=== PATIENT | male | born 1945 | race African-American/Black ===

== ENCOUNTER 2017-11-19 13:37 | Inpatient (IN) | payer OTHER ==
[~2017-11-19] VITALS: Ht 182.9 cm; Wt 122.0 kg
[~2017-11-19 13:37] MED LIST: ASPIRIN PO; DORZOLAMIDE EACHEYE; FINACRY PO; INSULIN 70/30 SUBCUT; METOPROLOL TARTRATE PO; SEA OMEGA PO; SIMVPOW2 PO; TAMSULOSIN HCL PO
[2017-11-19 15:05] LABS: Basophils # (auto) 0 uL; Basophils % (auto) 0.5 % (0.0-2.0); Eosinophils # (auto) 0.1 uL; Eosinophils % (auto) 2.2 % (0.0-7.0); Hematocrit 29.4 % (41.0-53.0); Lymphocytes # (auto) 1.3 uL; Lymphocytes % (auto) 19.5 % (10.0-50.0); Mean Corpuscular Hemoglobin 31.2 pg (28.0-32.0); Mean Corpuscular Hgb Conc. 33.9 g/dL (32.0-36.0); Monocytes # (auto) 0.5 uL; Monocytes % (auto) 7.3 % (0.0-12.0); Neutrophils # (auto) 4.6 uL; Neutrophils % (auto) 70.5 % (37.0-80.0); Nucleated Red Blood Cells % 0.1 %; Platelet Count (auto) 203 10^3/uL (140-450); Red Blood Cells 3.19 10^6/uL (4.5-5.90); Red Cell Distribution Width 12.9 % (11.8-14.3); White Blood Cell 6.6 10^3/uL (4.4-10.8)
[2017-11-19 15:27] LABS: Alanine Aminotransferase 28 U/L (16-61); Albumin 3.4 g/dL (3.4-5.0); Alkaline Phosphatase 76 U/L (45-117); Anion Gap 7 (5-15); Aspartate Aminotransferase 18 U/L (15-37); BUN/Creatinine Ratio 13.3; Bilirubin, Total 0.3 mg/dL (0.2-1.0); Blood Urea Nitrogen 53 mg/dL (7-18); Calcium 8.6 mg/dL (8.5-10.1); Carbon Dioxide 26 mmol/L (21-32); Chloride 105 mmol/L (98-107); GFR African American 19 mL/min; GFR Non-African American 16 mL/min; Glucose 124 mg/dL (74-106); Potassium 4.9 mmol/L (3.5-5.1); Sodium 138 mmol/L (136-145); Total Protein 8.3 g/dL (6.4-8.2)
[2017-11-19] MEDS ORDERED: VANCOMYCIN PER PHARMACY 0 MG IV SCH (16:45)
[2017-11-19] MEDS ORDERED: cefTRIAXone 1GM/10ml IVPUSH 10 ML IV ONE (16:45)
[2017-11-19] MEDS ORDERED: ONDANSETRON HCL 4 MG/2 ML VIAL IV PRN (17:00)
[2017-11-19] MEDS ORDERED: NITROGLYCERIN 0.4 MG SL TAB SL PRN (17:00)
[2017-11-19] MEDS ORDERED: MORPHINE SULFATE 4 MG/ML SYR/VIAL IV PRN ×2 (17:00)
[2017-11-19] MEDS ORDERED: TEMAZEPAM 15 MG CAP PO PRN (17:00)
[2017-11-19] MEDS ORDERED: DEXTROSE (50%) 50ML SYRG IV PRN (17:00)
[2017-11-19] MEDS ORDERED: ACETAMINOPHEN 325 MG TAB PO PRN (17:00)
[2017-11-19] MEDS ORDERED: DOCUSATE SOD 100 MG CAP PO PRN (17:00)
[2017-11-19] MEDS: ACCU-CHEK COMFORT CURVE STRIP VI SCH ×2 (17:33→22:00)
[2017-11-19] MEDS: InsuLIN REG 1unit/0.01ml Soln (100units/ml) SC SCH ×2 (17:33→22:00)
[2017-11-19] MEDS ORDERED: cloNIDine HCL 0.1 MG TAB PO PRN (17:45)
[2017-11-19] MEDS ORDERED: VANCOMYCIN 1,500 MG in SODIUM CHL 0.9% 250 ML IV ONE (18:00)
[2017-11-19] MEDS ORDERED: VANCOMYCIN 1,500 MG in D5W 5% 250 ML IV ONE (18:00)
[2017-11-19] MEDS: INSULIN 70/30 1unit/0.01ml Susp (100units/ml) SC SCH (18:13)
[2017-11-19] MEDS: TAMSULOSIN HYDROCHLORIDE 0.4 MG CAP PO SCH (18:14)
[2017-11-19 22:00] VITALS: BP 119/72
[2017-11-19] MEDS: DORZOLAMIDE HCL 2% OPTH(EYE) SOL 10ML EACHEYE SCH (22:00)
[2017-11-19 22:11] LABS: Lactic Acid w/Reflex 2.5 mmol/L (0.4-2.0)
[2017-11-19] MEDS: FAMOTIDINE 20 MG TAB PO SCH (23:02)
[2017-11-19] MEDS: ATORVASTATIN 20 MG TAB PO SCH (23:03)
[2017-11-19] MEDS: ASCORBIC ACID 500 MG TAB PO SCH (23:03)
[2017-11-19] MEDS: SODIUM CHLOR 0.9% PF (SALINE LOCK) 10ML VIAL/SYR IV SCH (23:05)
[2017-11-20 05:30] VITALS: BP 158/86
[2017-11-20] MEDS: InsuLIN REG 1unit/0.01ml Soln (100units/ml) SC SCH ×4 (06:16→22:00)
[2017-11-20] MEDS: HYDROcodone-ACET 5/325MG TAB PO PRN ×3 (06:16→22:31)
[2017-11-20] MEDS: ACCU-CHEK COMFORT CURVE STRIP VI SCH ×4 (06:17→22:28)
[2017-11-20] MEDS: SODIUM CHLOR 0.9% PF (SALINE LOCK) 10ML VIAL/SYR IV SCH ×3 (06:17→22:00)
[2017-11-20 07:24] LABS: Basophils # (auto) 0 uL; Basophils % (auto) 0.3 % (0.0-2.0); Eosinophils # (auto) 0.2 uL; Eosinophils % (auto) 2.1 % (0.0-7.0); Hematocrit 29.7 % (41.0-53.0); Hemoglobin 9.9 g/dL (13.5-17.5); Lymphocytes # (auto) 2.1 uL; Lymphocytes % (auto) 26.7 % (10.0-50.0); Mean Corpuscular Hemoglobin 30.9 pg (28.0-32.0); Mean Corpuscular Hgb Conc. 33.5 g/dL (32.0-36.0); Mean Corpuscular Volume 92.3 fL (80.0-100.0); Monocytes # (auto) 0.6 uL; Monocytes % (auto) 7.7 % (0.0-12.0); Neutrophils % (auto) 63.2 % (37.0-80.0); Nucleated Red Blood Cells % 0.2 %; Platelet Count (auto) 156 10^3/uL (140-450); Red Blood Cells 3.22 10^6/uL (4.5-5.90); Red Cell Distribution Width 12.6 % (11.8-14.3); White Blood Cell 7.9 10^3/uL (4.4-10.8)
[2017-11-20 07:42] LABS: Albumin 3.2 g/dL (3.4-5.0); BUN/Creatinine Ratio 14.8; Calcium 8.7 mg/dL (8.5-10.1); Potassium 4.9 mmol/L (3.5-5.1)
[2017-11-20 07:44] LABS: Bilirubin, Total 0.4 mg/dL (0.2-1.0); Total Protein 7.9 g/dL (6.4-8.2)
[2017-11-20] MEDS: INSULIN 70/30 1unit/0.01ml Susp (100units/ml) SC SCH ×2 (08:20→17:30)
[2017-11-20 08:59] VITALS: BP 161/81
[2017-11-20] MEDS ORDERED: cefTRIAXone 1GM/10ml IVPUSH 10 ML IV SCH (09:00)
[2017-11-20] MEDS: ZINC SULFATE 220 MG CAP PO SCH (09:47)
[2017-11-20] MEDS: DORZOLAMIDE HCL 2% OPTH(EYE) SOL 10ML EACHEYE SCH ×2 (09:47→22:00)
[2017-11-20] MEDS: MULTIPLE VITAMIN TAB PO SCH (09:49)
[2017-11-20] MEDS: FINASTERIDE 5 MG TAB PO SCH (09:49)
[2017-11-20] MEDS: ASCORBIC ACID 500 MG TAB PO SCH ×2 (09:50→22:00)
[2017-11-20] MEDS ORDERED: METOPROLOL SUCCINATE XL 50 MG TAB PO SCH (10:00)
[2017-11-20] MEDS ORDERED: ASPirin-EC 81 mg tab PO SCH (10:00)
[2017-11-20] MEDS ORDERED: VANCOMYCIN 1GM/250ML 250 ML IV ONE (10:30)
[2017-11-20 11:17] LABS: Urine Bacteria NONE SEEN /hpf (None Seen); Urine Blood Negative /uL (Negative); Urine Specific Gravity 1.016 (1.001-1.035); Urine WBC 1 /hpf (0 - 3)
[2017-11-20] MEDS ORDERED: INSULIN 70/30 1unit/0.01ml Susp (100units/ml) SC SCH (12:00)
[2017-11-20 12:48] VITALS: BP 105/67
[2017-11-20] MEDS ORDERED: CLINDAMYCIN 900MG IV 50 ML IV ONE (13:00)
[2017-11-20 17:00] VITALS: BP 125/68
[2017-11-20] MEDS: TAMSULOSIN HYDROCHLORIDE 0.4 MG CAP PO SCH (17:49)
[2017-11-20 22:00] VITALS: BP 149/68
[2017-11-20] MEDS: ATORVASTATIN 20 MG TAB PO SCH (22:30)
[2017-11-20] MEDS: CLINDAMYCIN 900MG IV 50 ML IV SCH (22:30)
[2017-11-20] MEDS: FAMOTIDINE 20 MG TAB PO SCH (22:31)
[2017-11-21 05:00] VITALS: BP 152/83
[2017-11-21] MEDS: ACCU-CHEK COMFORT CURVE STRIP VI SCH ×2 (06:25→11:30)
[2017-11-21] MEDS: InsuLIN REG 1unit/0.01ml Soln (100units/ml) SC SCH ×2 (06:25→11:30)
[2017-11-21] MEDS: CLINDAMYCIN 900MG IV 50 ML IV SCH (06:25)
[2017-11-21] MEDS: INSULIN 70/30 1unit/0.01ml Susp (100units/ml) SC SCH (08:12)
[2017-11-21 08:30] VITALS: BP 143/69
[2017-11-21] MEDS: FINASTERIDE 5 MG TAB PO SCH (09:50)
[2017-11-21] MEDS: ZINC SULFATE 220 MG CAP PO SCH (09:50)
[2017-11-21] MEDS: MULTIPLE VITAMIN TAB PO SCH (09:50)
[2017-11-21] MEDS: ASCORBIC ACID 500 MG TAB PO SCH (09:50)
[2017-11-21] MEDS: DORZOLAMIDE HCL 2% OPTH(EYE) SOL 10ML EACHEYE SCH (09:51)
[2017-11-21 10:51] VITALS: BP 143/69
== END 2017-11-21 12:30 | disposition home or self-care (01) | DRG 539 ==
LOC: EDBD 13:37 → ER 13:51 → TELE 13:52 → TELE-WESTW 21:55
PROVIDERS: ADMIT Internal Medicine; ATTEND Internal Medicine
DX: M86.9 Osteomyelitis, unspecified (principal); G93.41 Metabolic encephalopathy; N18.4 Chronic kidney disease, stage 4 (severe); E11.21 Type 2 diabetes mellitus with diabetic nephropathy; R55 Syncope and collapse; E11.69 Type 2 diabetes mellitus with other specified complication; E86.1 Hypovolemia; E11.22 Type 2 diabetes mellitus with diabetic chronic kidney disease; E66.9 Obesity, unspecified; M27.2 Inflammatory conditions of jaws; I13.10 Hypertensive heart and chronic kidney disease without heart failure, with stage 1 through stage 4 chronic kidney disease, or unspecified chronic kidney disease; J32.0 Chronic maxillary sinusitis; I70.90 Unspecified atherosclerosis; K05.219 Aggressive periodontitis, localized, unspecified severity; D63.8 Anemia in other chronic diseases classified elsewhere; E78.5 Hyperlipidemia, unspecified; I10 Essential (primary) hypertension; Z79.4 Long term (current) use of insulin; Z83.3 Family history of diabetes mellitus; Z90.49 Acquired absence of other specified parts of digestive tract
CPT/HCPCS: 36415; 70450; 70486; 71045; 80053; 80202; 81001; 82962; 83036; 83605; 83880; 84443; 84484; 85025; 87040; 93005; 93306; 96365; 96372; 96375; 99291; J1815; J3490; J7060

== ENCOUNTER → 2019-11-19 | Emergency (ER) | payer OTHER ==
[~2019-11-19] VITALS: Ht 182.9 cm; Wt 114.8 kg
[2019-11-19 12:00] VITALS: BP 147/72
== END | disposition home or self-care (01) ==
LOC: ER 11:47
DX: J30.9 Allergic rhinitis, unspecified (principal); E11.9 Type 2 diabetes mellitus without complications; E78.5 Hyperlipidemia, unspecified; I10 Essential (primary) hypertension
CPT/HCPCS: 71046

== ENCOUNTER 2020-03-03 21:43 | Emergency (ER) | payer OTHER ==
[~2020-03-03] VITALS: Ht 182.9 cm; Wt 111.1 kg
[2020-03-03] MEDS ORDERED: SODIUM CHLORIDE 0.9% 500 ML IV ONE (22:19)
[2020-03-03 23:19] LABS: Basophils # (auto) 0.1 10 ^3/uL (0-0.2); Eosinophils # (auto) 0.2 10 ^3/uL (0-0.8); White Blood Cell 7.8 10^3/uL (4.4-10.8)
[2020-03-03 23:21] LABS: Basophils % (auto) 1.1 % (0.0-2.0); Hematocrit 23.4 % (41.0-53.0); Hemoglobin 7.2 g/dL (13.5-17.5); Lymphocytes # (auto) 1.2 10 ^3/uL (0.4-5.4); Lymphocytes % (auto) 15.5 % (10.0-50.0); Mean Corpuscular Hemoglobin 28.6 pg (28.0-32.0); Mean Corpuscular Volume 92.4 fL (80.0-100.0); Monocytes # (auto) 0.4 10 ^3/uL (0-1.3); Monocytes % (auto) 5.3 % (0.0-12.0); Neutrophils # (auto) 5.8 10 ^3/uL (1.6-8.6); Neutrophils % (auto) 75.1 % (37.0-80.0); Nucleated Red Blood Cells % 0.2 %; Platelet Count (auto) 221 10^3/uL (140-450); Red Blood Cells 2.53 10^6/uL (4.5-5.90); Red Cell Distribution Width 14.4 % (11.8-14.3)
[2020-03-03 23:52] LABS: Albumin 2.8 g/dL (3.4-5.0); BUN/Creatinine Ratio 16.7; Calcium 8.9 mg/dL (8.5-10.1); Potassium 5.4 mmol/L (3.5-5.1)
[2020-03-03 23:54] LABS: Bilirubin, Total 0.3 mg/dL (0.2-1.0)
[2020-03-03 23:58] LABS: Urine Bacteria NONE SEEN /hpf (None Seen); Urine Blood Negative /uL (Negative); Urine Specific Gravity 1.013 (1.001-1.035); Urine WBC 1 /hpf (0 - 3)
[2020-03-04] MEDS ORDERED: SODIUM ZIRCONIUM CYCL 10 GM PAK PO ONE (00:30)
[2020-03-04] MEDS ORDERED: SODIUM CHLORIDE 0.9% 250 ML IV ONE (01:00)
[2020-03-04 02:00] VITALS: BP 137/59
== END 2020-03-04 07:27 | disposition home or self-care (01) ==
LOC: EDBD 21:43 → ER 21:43
DX: E86.0 Dehydration (principal); R53.1 Weakness; I95.9 Hypotension, unspecified; N17.8 Other acute kidney failure; E87.5 Hyperkalemia
CPT/HCPCS: 36415; 80053; 81001; 85025; 93005; 96360; 99285; J7030; 96361

== ENCOUNTER 2020-04-05 23:25 | Emergency (ER) | payer OTHER ==
[~2020-04-05] VITALS: Ht 182.9 cm; Wt 108.9 kg
[2020-04-06] MEDS ORDERED: FLEET ENEMA(ADULT) 135 ML PR ONE (02:00)
[2020-04-06 05:15] VITALS: BP 141/61
== END 2020-04-06 06:47 | disposition home or self-care (01) ==
LOC: EDBD 23:25 → ER 23:32
DX: K59.00 Constipation, unspecified (principal); E11.9 Type 2 diabetes mellitus without complications; E78.5 Hyperlipidemia, unspecified; I10 Essential (primary) hypertension; Z90.49 Acquired absence of other specified parts of digestive tract; Z86.79 Personal history of other diseases of the circulatory system; Z86.74 Personal history of sudden cardiac arrest
CPT/HCPCS: 74176

== ENCOUNTER 2021-10-17 19:30 | Emergency (ER) | payer OTHER ==
[~2021-10-17] VITALS: Ht 185.4 cm; Wt 93.4 kg
[2021-10-17] MEDS ORDERED: FLEET ENEMA(ADULT) 135 ML PR ONE (20:15)
[2021-10-17] MEDS ORDERED: MAGNESIUM CITRATE SOLUTION 300 ML BTL PO ONE (21:00)
[2021-10-18] MEDS ORDERED: POLY33504 PO (02:49)
[2021-10-18 10:30] VITALS: BP 141/66
== END 2021-10-18 12:12 | disposition home or self-care (01) ==
LOC: EDBD 19:30 → EDUNIT# 19:30 → ER 19:30
DX: K59.00 Constipation, unspecified (principal); I10 Essential (primary) hypertension; E11.9 Type 2 diabetes mellitus without complications; E78.5 Hyperlipidemia, unspecified; Z86.2 Personal history of diseases of the blood and blood-forming organs and certain disorders involving the immune mechanism; Z90.49 Acquired absence of other specified parts of digestive tract; Z79.4 Long term (current) use of insulin; Z79.82 Long term (current) use of aspirin; Z79.899 Other long term (current) drug therapy
CPT/HCPCS: 74176

== ENCOUNTER 2021-12-21 08:45 | Emergency (ER) | payer OTHER ==
[~2021-12-21] VITALS: Ht 182.9 cm; Wt 95.3 kg
[~2021-12-21 08:45] MED LIST changes: +DOCU-94 PO; +DOXY-286 PO; +FER325T PO; -INSULIN 70/30 SUBCUT; +POLY33504 PO; -SIMVPOW2 PO
[2021-12-21] MEDS ORDERED: SODIUM CHLORIDE 0.9% 500 ML IVB ONE (10:15)
[2021-12-21] MEDS ORDERED: SODIUM CHLORIDE 0.9% 1,000 ML IV ONE (10:15)
[2021-12-21 10:36] LABS: Basophils # (auto) 0 10 ^3/uL (0-0.2); Basophils % (auto) 0.8 % (0.0-2.0); Eosinophils # (auto) 0.1 10 ^3/uL (0-0.8); Hematocrit 23.4 % (41.0-53.0); Hemoglobin 7.9 g/dL (13.5-17.5); Lymphocytes # (auto) 1.2 10 ^3/uL (0.4-5.4); Lymphocytes % (auto) 26.6 % (10.0-50.0); Mean Corpuscular Hemoglobin 30.1 pg (28.0-32.0); Mean Corpuscular Volume 88.5 fL (80.0-100.0); Monocytes # (auto) 0.3 10 ^3/uL (0-1.3); Neutrophils # (auto) 2.9 10 ^3/uL (1.6-8.6); Neutrophils % (auto) 62.6 % (37.0-80.0); Red Blood Cells 2.64 10^6/uL (4.5-5.90); Red Cell Distribution Width 15.5 % (11.8-14.3); White Blood Cell 4.6 10^3/uL (4.4-10.8)
[2021-12-21 11:59] LABS: Potassium 5.2 mmol/L (3.5-5.1)
[2021-12-21 12:09] LABS: Albumin 2.8 g/dL (3.4-5.0); BUN/Creatinine Ratio 12.1; Bilirubin, Total 0.4 mg/dL (0.2-1.0); Calcium 9.5 mg/dL (8.5-10.1); Magnesium 3.4 mg/dL (1.6-2.6); Total Protein 7.9 g/dL (6.4-8.2)
[2021-12-21] MEDS ORDERED: FLEET MINERAL OIL ENEMA 133 ML PR ONE (12:30)
[2021-12-21] MEDS ORDERED: FURO1TAB33 PO (15:52)
[2021-12-21] MEDS ORDERED: MAGNSUS48 PO (15:52)
[2021-12-21 16:01] LABS: Urine Bacteria NONE SEEN /hpf (None Seen); Urine Blood Negative /uL (Negative); Urine Specific Gravity 1.014 (1.001-1.035); Urine WBC 2 /hpf (0 - 3)
[2021-12-21 19:00] VITALS: BP 114/55
== END 2021-12-21 19:25 | disposition home or self-care (01) ==
LOC: EDBD 08:45 → ER 08:51
DX: K59.00 Constipation, unspecified (principal); E87.5 Hyperkalemia; D63.1 Anemia in chronic kidney disease; E11.22 Type 2 diabetes mellitus with diabetic chronic kidney disease; I12.9 Hypertensive chronic kidney disease with stage 1 through stage 4 chronic kidney disease, or unspecified chronic kidney disease; N18.4 Chronic kidney disease, stage 4 (severe); E44.0 Moderate protein-calorie malnutrition; Z68.28 Body mass index [BMI] 28.0-28.9, adult
CPT/HCPCS: 36415; 71045; 74176; 80053; 81001; 83690; 83735; 85025; 93005; 96360; 99285; J7030

== ENCOUNTER 2022-01-14 13:41 | Inpatient (IN) | payer OTHER ==
[~2022-01-14] VITALS: Ht 188 cm; Wt 85.0 kg
[~2022-01-14 13:41] MED LIST changes: -FER325T PO; +FURO1TAB33 PO; +MAGNSUS48 PO
[2022-01-14] MEDS ORDERED: FLEET ENEMA(ADULT) 135 ML PR ONE (14:00)
[2022-01-14] MEDS ORDERED: DOCUSATE SOD 100 MG CAP PO ONE (14:00)
[2022-01-14 15:36] LABS: Basophils # (auto) 0 10 ^3/uL (0-0.2); Basophils % (auto) 0.8 % (0.0-2.0); Eosinophils # (auto) 0.1 10 ^3/uL (0-0.8); Eosinophils % (auto) 2.8 % (0.0-7.0); Hematocrit 23.7 % (41.0-53.0); Hemoglobin 7.8 g/dL (13.5-17.5); Lymphocytes # (auto) 1.1 10 ^3/uL (0.4-5.4); Lymphocytes % (auto) 28.5 % (10.0-50.0); Mean Corpuscular Hemoglobin 29.9 pg (28.0-32.0); Mean Corpuscular Hgb Conc. 32.9 g/dL (32.0-36.0); Monocytes # (auto) 0.2 10 ^3/uL (0-1.3); Monocytes % (auto) 6.1 % (0.0-12.0); Neutrophils # (auto) 2.4 10 ^3/uL (1.6-8.6); Neutrophils % (auto) 61.8 % (37.0-80.0); Nucleated Red Blood Cells % 0.1 %; Red Cell Distribution Width 15.8 % (11.8-14.3); White Blood Cell 3.9 10^3/uL (4.4-10.8)
[2022-01-14 15:51] LABS: Albumin 2.7 g/dL (3.4-5.0); Calcium 9.2 mg/dL (8.5-10.1)
[2022-01-14 16:07] LABS: BUN/Creatinine Ratio 15.7
[2022-01-14 16:08] LABS: Bilirubin, Total 0.3 mg/dL (0.2-1.0); Total Protein 7.1 g/dL (6.4-8.2)
[2022-01-14 16:10] LABS: Potassium 5.6 mmol/L (3.5-5.1)
[2022-01-14] MEDS ORDERED: SODIUM BICARBONATE 8.4% INJ 50ML SYRINGE IV ONE (16:30)
[2022-01-14] MEDS ORDERED: ALBUTEROL SULF 2.5 MG/0.5ML(0.5%) NEB SOLN NEB ONE (16:30)
[2022-01-14] MEDS ORDERED: CALCIUM GLUC 1,000mg/50ml-NS 50 ML IV ONE (16:30)
[2022-01-14] MEDS ORDERED: DEXTROSE (50%) 50ML SYRG IV ONE (16:30)
[2022-01-14] MEDS ORDERED: SODIUM CHLORIDE 0.9% 1,000 ML IV ONE ×2 (16:30)
[2022-01-14] MEDS ORDERED: FUROSEMIDE 20 MG/2 ML VIAL IV ONE (16:30)
[2022-01-14] MEDS ORDERED: SODIUM ZIRCONIUM CYCL 10 GM PAK PO ONE (16:30)
[2022-01-14] MEDS ORDERED: InsuLIN REG 1unit/0.01ml Soln (100units/ml) IV ONE (16:30)
[2022-01-14] MEDS ORDERED: DOCUSATE SOD 100 MG CAP PO PRN (21:45)
[2022-01-14] MEDS ORDERED: ONDANSETRON HCL 4 MG/2 ML VIAL IV PRN (21:45)
[2022-01-14] MEDS ORDERED: DEXTROSE (50%) 50ML SYRG IV PRN (21:45)
[2022-01-14] MEDS ORDERED: HYDROcodone-ACET 5/325MG TAB PO PRN (21:45)
[2022-01-14] MEDS ORDERED: ACETAMINOPHEN 325 MG TAB PO PRN (21:45)
[2022-01-14] MEDS: ACCU-CHEK COMFORT CURVE STRIP VI SCH (22:00)
[2022-01-14] MEDS: InsuLIN REG 1unit/0.01ml Soln (100units/ml) SC SCH (22:00)
[2022-01-14] MEDS: SODIUM CHLOR 0.9% PF (SALINE LOCK) 10ML VIAL/SYR IV SCH (22:50)
[2022-01-14] MEDS: DOCUSATE SOD 100 MG CAP PO SCH (23:06)
[2022-01-14] MEDS: HEPARIN SODIUM (PORCINE) 5000 UNITS/ML 1ML VIAL SC SCH (23:13)
[2022-01-14] MEDS ORDERED: NITROGLYCERIN 0.4 MG SL TAB SL PRN (23:45)
[2022-01-14] MEDS ORDERED: MORPHINE SULFATE INJ 2 MG/ml SYRG IV PRN (23:45)
[2022-01-15 04:37] LABS: Urine Bacteria NONE SEEN /hpf (None Seen); Urine Blood Negative /uL (Negative); Urine Hyaline Cast FEW /lpf (0 - 2); Urine Mucus FEW (None Seen); Urine Specific Gravity 1.009 (1.001-1.035); Urine WBC <1 /hpf (0 - 3)
[2022-01-15 05:44] LABS: Albumin 2.7 g/dL (3.4-5.0); Potassium 4.6 mmol/L (3.5-5.1)
[2022-01-15 05:48] LABS: BUN/Creatinine Ratio 15.7; Bilirubin, Total 0.3 mg/dL (0.2-1.0); Total Protein 7.1 g/dL (6.4-8.2)
[2022-01-15 05:53] LABS: Basophils # (auto) 0 10 ^3/uL (0-0.2); Eosinophils # (auto) 0.1 10 ^3/uL (0-0.8); Hemoglobin 7.6 g/dL (13.5-17.5); Lymphocytes # (auto) 1.5 10 ^3/uL (0.4-5.4); Monocytes # (auto) 0.3 10 ^3/uL (0-1.3); Neutrophils # (auto) 3.1 10 ^3/uL (1.6-8.6); Red Cell Distribution Width 15.6 % (11.8-14.3)
[2022-01-15] MEDS: SODIUM CHLOR 0.9% PF (SALINE LOCK) 10ML VIAL/SYR IV SCH ×3 (06:07→22:00)
[2022-01-15] MEDS: ACCU-CHEK COMFORT CURVE STRIP VI SCH ×4 (06:47→22:00)
[2022-01-15] MEDS: InsuLIN REG 1unit/0.01ml Soln (100units/ml) SC SCH ×4 (06:48→22:00)
[2022-01-15 06:49] LABS: Basophils % (auto) 0.7 % (0.0-2.0); Eosinophils % (auto) 2.8 % (0.0-7.0); Hematocrit 22.7 % (41.0-53.0); Lymphocytes % (auto) 29.7 % (10.0-50.0); Mean Corpuscular Hemoglobin 30.1 pg (28.0-32.0); Mean Corpuscular Hgb Conc. 33.4 g/dL (32.0-36.0); Mean Corpuscular Volume 90.1 fL (80.0-100.0); Monocytes % (auto) 6.5 % (0.0-12.0); Neutrophils % (auto) 60.3 % (37.0-80.0); Red Blood Cells 2.52 10^6/uL (4.5-5.90); White Blood Cell 5.2 10^3/uL (4.4-10.8)
[2022-01-15] MEDS: DOCUSATE SOD 100 MG CAP PO SCH ×2 (10:19→22:32)
[2022-01-15] MEDS: FAMOTIDINE (10MG/ML) 2ML VL IV SCH (10:19)
[2022-01-15] MEDS: HEPARIN SODIUM (PORCINE) 5000 UNITS/ML 1ML VIAL SC SCH (10:22)
[2022-01-15] MEDS: FUROSEMIDE 20 MG/2 ML VIAL IV SCH (10:32)
[2022-01-15] MEDS ORDERED: LACTULOSE 20Gm/30ML SOLN PO ONE (11:15)
[2022-01-15 12:45] LABS: Alcohol, Urine < 3.0 mg/dL (0-10); Amphetamine Screen, Urine NEGATIVE (NEGATIVE); Barbiturate Scree,Urine NEGATIVE (NEGATIVE); Benzodiazephine Screen, Urine NEGATIVE (NEGATIVE); Cannabinoid Screen, Urine NEGATIVE (NEGATIVE); Cocaine Screen, Urine NEGATIVE (NEGATIVE); Opiate Scree,Urine NEGATIVE (NEGATIVE); Phencyclidine Screen, Urine NEGATIVE (NEGATIVE)
[2022-01-15] MEDS ORDERED: TRAZ1TAB12 PO (16:43)
[2022-01-15] MEDS ORDERED: LORA-622 PO (16:43)
[2022-01-15] MEDS ORDERED: CARV25TA55 PO (16:43)
[2022-01-15] MEDS ORDERED: ATOR20TA PO (16:43)
[2022-01-15] MEDS ORDERED: FER325T PO (16:43)
[2022-01-15] MEDS ORDERED: NIFE1TAB30 PO (16:43)
[2022-01-15 20:00] VITALS: BP 141/76
[2022-01-15 21:35] VITALS: BP 141/70
[2022-01-16 04:55] VITALS: BP 117/55
[2022-01-16] MEDS: InsuLIN REG 1unit/0.01ml Soln (100units/ml) SC SCH ×2 (06:18→11:30)
[2022-01-16] MEDS: ACCU-CHEK COMFORT CURVE STRIP VI SCH ×2 (06:18→14:24)
[2022-01-16] MEDS: SODIUM CHLOR 0.9% PF (SALINE LOCK) 10ML VIAL/SYR IV SCH ×2 (06:18→14:24)
[2022-01-16 06:31] LABS: Calcium 8.7 mg/dL (8.5-10.1); Potassium 4.7 mmol/L (3.5-5.1)
[2022-01-16 06:34] LABS: BUN/Creatinine Ratio 15.4
[2022-01-16 08:00] VITALS: BP 141/76
[2022-01-16 09:00] VITALS: BP 139/63
[2022-01-16] MEDS: DOCUSATE SOD 100 MG CAP PO SCH (10:00)
[2022-01-16] MEDS: FAMOTIDINE (10MG/ML) 2ML VL IV SCH (10:00)
[2022-01-16] MEDS: FUROSEMIDE 20 MG/2 ML VIAL IV SCH (10:00)
[2022-01-16] MEDS ORDERED: DOCU-94 PO (10:17)
[2022-01-16 12:39] VITALS: BP 161/72
== END 2022-01-16 16:00 | disposition home or self-care (01) | DRG 392 ==
LOC: ER 13:41 → EDUNIT# 13:41 → EDBD 13:41 → TELE 23:45 → TELE-EAST 01-15 15:41
PROVIDERS: ADMIT Nurse Practitioner Family; ATTEND Family Medicine
DX: K59.00 Constipation, unspecified (principal); E44.0 Moderate protein-calorie malnutrition; N17.9 Acute kidney failure, unspecified; N18.4 Chronic kidney disease, stage 4 (severe); I69.351 Hemiplegia and hemiparesis following cerebral infarction affecting right dominant side; E87.5 Hyperkalemia; K31.9 Disease of stomach and duodenum, unspecified; E11.65 Type 2 diabetes mellitus with hyperglycemia; E88.09 Other disorders of plasma-protein metabolism, not elsewhere classified; N40.0 Benign prostatic hyperplasia without lower urinary tract symptoms; E11.22 Type 2 diabetes mellitus with diabetic chronic kidney disease; I12.9 Hypertensive chronic kidney disease with stage 1 through stage 4 chronic kidney disease, or unspecified chronic kidney disease; Z20.822 Contact with and (suspected) exposure to COVID-19; E78.5 Hyperlipidemia, unspecified; D63.1 Anemia in chronic kidney disease; E78.00 Pure hypercholesterolemia, unspecified; E11.40 Type 2 diabetes mellitus with diabetic neuropathy, unspecified; L97.529 Non-pressure chronic ulcer of other part of left foot with unspecified severity; L97.519 Non-pressure chronic ulcer of other part of right foot with unspecified severity; Z79.4 Long term (current) use of insulin; Z74.01 Bed confinement status; Z83.3 Family history of diabetes mellitus; Z68.24 Body mass index [BMI] 24.0-24.9, adult; Z90.49 Acquired absence of other specified parts of digestive tract; Z87.891 Personal history of nicotine dependence
CPT/HCPCS: 36415; 74176; 80048; 80053; 80307; 81001; 82962; 83036; 84100; 84132; 84484; 85025; 86850; 86900; 86901; 87081; 94644; 96374; 96375; 99291; G0378; J1815; J3490

== ENCOUNTER 2022-03-12 06:11 | Inpatient (IN) | payer OTHER ==
[~2022-03-12] VITALS: Ht 188 cm; Wt 90.6 kg
[~2022-03-12 06:11] MED LIST changes: +ATOR20TA PO; +CARV25TA55 PO; +FER325T PO; +LORA-622 PO; +NIFE1TAB30 PO; +TRAZ1TAB12 PO
[2022-03-12 10:04] LABS: Basophils # (auto) 0 10 ^3/uL (0-0.2); Basophils % (auto) 0.1 % (0.0-2.0); Eosinophils # (auto) 0 10 ^3/uL (0-0.8); Hematocrit 26.8 % (41.0-53.0); Hemoglobin 8.6 g/dL (13.5-17.5); Lymphocytes # (auto) 1.2 10 ^3/uL (0.4-5.4); Lymphocytes % (auto) 5.9 % (10.0-50.0); Mean Corpuscular Volume 93.6 fL (80.0-100.0); Monocytes # (auto) 1.1 10 ^3/uL (0-1.3); Monocytes % (auto) 5.6 % (0.0-12.0); Neutrophils % (auto) 88.4 % (37.0-80.0); Nucleated Red Blood Cells % 0.1 %; Red Blood Cells 2.87 10^6/uL (4.5-5.90); Red Cell Distribution Width 15.6 % (11.8-14.3); White Blood Cell 20.3 10^3/uL (4.4-10.8)
[2022-03-12] MEDS ORDERED: SODIUM CHLORIDE 0.9% 1,000 ML IV ONE (10:15)
[2022-03-12] MEDS ORDERED: SODIUM CHLORIDE 0.9% 500 ML IVB ONE (10:15)
[2022-03-12] MEDS ORDERED: ACETAMINOPHEN 650 mg PER 20.3 mL UD PO ONE (11:00)
[2022-03-12 11:04] LABS: Urine Bacteria MANY /hpf (None Seen); Urine Blood TRACE /uL (Negative); Urine Specific Gravity 1.014 (1.001-1.035); Urine WBC 88 /hpf (0 - 3)
[2022-03-12 12:02] LABS: Calcium 9.6 mg/dL (8.5-10.1); Chloride 104 mmol/L (98-107); Potassium 4.6 mmol/L (3.5-5.1); Sodium 139 mmol/L (136-145)
[2022-03-12 12:06] LABS: Alanine Aminotransferase 12 U/L (16-61); Anion Gap 16 (5-15); Aspartate Aminotransferase 11 U/L (15-37); BUN/Creatinine Ratio 21.4; Blood Alcohol < 3.0 mg/dL (0-5); Blood Urea Nitrogen 67 mg/dL (7-18); Carbon Dioxide 19 mmol/L (21-32); GFR African American 25 mL/min; GFR Non-African American 21 mL/min; Glucose 170 mg/dL (74-106)
[2022-03-12 12:09] LABS: Bilirubin, Total 0.8 mg/dL (0.2-1.0); Total Protein 7.2 g/dL (6.4-8.2)
[2022-03-12] MEDS ORDERED: cefTRIAXone 1GM/50ML D5W 50 ML IV ONE (13:00)
[2022-03-12] MEDS ORDERED: ONDANSETRON HCL 4 MG/2 ML VIAL IV PRN (14:00)
[2022-03-12] MEDS ORDERED: DOCUSATE SOD 100 MG CAP PO PRN (14:00)
[2022-03-12] MEDS: SODIUM CHLORIDE 0.9% 1,000 ML IV SCH (14:13)
[2022-03-12 16:36] LABS: Alkaline Phosphatase 67 U/L (45-117)
[2022-03-12] MEDS: ACETAMINOPHEN 325 MG TAB PO PRN (22:02)
[2022-03-12 23:00] VITALS: BP 117/50
[2022-03-13 05:04] VITALS: BP 118/54
[2022-03-13 05:34] LABS: Basophils # (auto) 0 10 ^3/uL (0-0.2); Basophils % (auto) 0.1 % (0.0-2.0); Eosinophils # (auto) 0 10 ^3/uL (0-0.8); Eosinophils % (auto) 0.1 % (0.0-7.0); Hematocrit 26.6 % (41.0-53.0); Hemoglobin 8.4 g/dL (13.5-17.5); Lymphocytes # (auto) 1.3 10 ^3/uL (0.4-5.4); Lymphocytes % (auto) 6.4 % (10.0-50.0); Mean Corpuscular Hemoglobin 29.2 pg (28.0-32.0); Mean Corpuscular Hgb Conc. 31.6 g/dL (32.0-36.0); Mean Corpuscular Volume 92.3 fL (80.0-100.0); Monocytes # (auto) 1.2 10 ^3/uL (0-1.3); Monocytes % (auto) 5.8 % (0.0-12.0); Neutrophils # (auto) 17.5 10 ^3/uL (1.6-8.6); Neutrophils % (auto) 87.6 % (37.0-80.0); Red Blood Cells 2.89 10^6/uL (4.5-5.90); Red Cell Distribution Width 15.8 % (11.8-14.3)
[2022-03-13] MEDS: SODIUM CHLORIDE 0.9% 1,000 ML IV SCH ×2 (06:46→12:03)
[2022-03-13 08:30] VITALS: BP 135/78
[2022-03-13] MEDS: ENOXAPARIN SOD 30 MG/0.3 ML SYRINGE SC SCH (12:02)
[2022-03-13] MEDS: cefTRIAXone 1GM/50ML D5W 50 ML IV SCH (12:02)
[2022-03-13 12:30] VITALS: BP 134/51
[2022-03-13] MEDS ORDERED: VANCOMYCIN PER PHARMACY 0 MG IV SCH (15:45)
[2022-03-13] MEDS ORDERED: VANCOMYCIN 1GM/250ML 250 ML IV ONE (16:00)
[2022-03-13 17:00] VITALS: BP 138/50
[2022-03-13] MEDS: LACTATED RINGER'S 1,000 ML IV SCH (19:17)
[2022-03-13 22:00] VITALS: BP 140/46
[2022-03-14 05:00] VITALS: BP 132/51
[2022-03-14 06:51] LABS: Eosinophils # (auto) 0.1 10 ^3/uL (0-0.8); Hemoglobin 7.9 g/dL (13.5-17.5); Lymphocytes # (auto) 1.4 10 ^3/uL (0.4-5.4); Mean Corpuscular Volume 90.5 fL (80.0-100.0); Monocytes # (auto) 1.1 10 ^3/uL (0-1.3)
[2022-03-14 06:54] LABS: Basophils # (auto) 0.1 10 ^3/uL (0-0.2); Basophils % (auto) 0.5 % (0.0-2.0); Eosinophils % (auto) 0.4 % (0.0-7.0); Hematocrit 23.9 % (41.0-53.0); Lymphocytes % (auto) 9.2 % (10.0-50.0); Mean Corpuscular Hgb Conc. 33.1 g/dL (32.0-36.0); Neutrophils # (auto) 12.6 10 ^3/uL (1.6-8.6); Neutrophils % (auto) 82.9 % (37.0-80.0); Red Blood Cells 2.64 10^6/uL (4.5-5.90); Red Cell Distribution Width 14.9 % (11.8-14.3); White Blood Cell 15.1 10^3/uL (4.4-10.8)
[2022-03-14 07:00] LABS: Calcium 9.1 mg/dL (8.5-10.1); Potassium 3.8 mmol/L (3.5-5.1)
[2022-03-14 07:02] LABS: BUN/Creatinine Ratio 25.6
[2022-03-14 09:00] VITALS: BP 143/59
[2022-03-14] MEDS: cefTRIAXone 1GM/50ML D5W 50 ML IV SCH (10:14)
[2022-03-14] MEDS: ENOXAPARIN SOD 30 MG/0.3 ML SYRINGE SC SCH (10:14)
[2022-03-14] MEDS: LACTATED RINGER'S 1,000 ML IV SCH (10:45)
[2022-03-14] MEDS: ACETAMINOPHEN 325 MG TAB PO PRN (10:56)
[2022-03-14] MEDS ORDERED: VANCOMYCIN 1GM/250ML 250 ML IV ONE (12:00)
[2022-03-14 13:00] VITALS: BP 157/64
[2022-03-14 22:00] VITALS: BP 151/67
[2022-03-14] MEDS ORDERED: LINEZOLID 600MG/300ML 300 ML IV SCH (22:00)
[2022-03-15 06:18] LABS: BUN/Creatinine Ratio 28.8; Calcium 8.5 mg/dL (8.5-10.1)
[2022-03-15] MEDS: LACTATED RINGER'S 1,000 ML IV SCH (08:00)
[2022-03-15 09:00] VITALS: BP 149/64
[2022-03-15] MEDS: cefTRIAXone 1GM/50ML D5W 50 ML IV SCH (09:22)
[2022-03-15] MEDS: ENOXAPARIN SOD 30 MG/0.3 ML SYRINGE SC SCH (09:23)
[2022-03-15 12:13] LABS: Basophils # (auto) 0 10 ^3/uL (0-0.2); Basophils % (auto) 0.2 % (0.0-2.0); Eosinophils # (auto) 0.1 10 ^3/uL (0-0.8); Lymphocytes # (auto) 0.9 10 ^3/uL (0.4-5.4); Monocytes # (auto) 0.7 10 ^3/uL (0-1.3); White Blood Cell 9.2 10^3/uL (4.4-10.8)
[2022-03-15 12:15] LABS: Hematocrit 21.3 % (41.0-53.0); Lymphocytes % (auto) 10.2 % (10.0-50.0); Mean Corpuscular Hemoglobin 29.8 pg (28.0-32.0); Mean Corpuscular Hgb Conc. 32.4 g/dL (32.0-36.0); Mean Corpuscular Volume 92.1 fL (80.0-100.0); Monocytes % (auto) 7.2 % (0.0-12.0); Neutrophils # (auto) 7.5 10 ^3/uL (1.6-8.6); Neutrophils % (auto) 81.4 % (37.0-80.0); Nucleated Red Blood Cells % 0.1 %; Red Blood Cells 2.31 10^6/uL (4.5-5.90); Red Cell Distribution Width 15.2 % (11.8-14.3)
[2022-03-15 12:29] LABS: BUN/Creatinine Ratio 27.7; Calcium 8.1 mg/dL (8.5-10.1); Potassium 3.9 mmol/L (3.5-5.1)
[2022-03-15 12:47] LABS: Hemoglobin 6.9 g/dL (13.5-17.5)
[2022-03-15 13:00] VITALS: BP 144/59
[2022-03-15 17:00] VITALS: BP 154/64
[2022-03-15] MEDS ORDERED: VANCOMYCIN 1GM/250ML 250 ML IV ONE (17:45)
[2022-03-15] MEDS: TAMSULOSIN HYDROCHLORIDE 0.4 MG CAP PO SCH (17:57)
[2022-03-15] MEDS: FERROUS SULFATE 325mg EC TAB PO SCH (17:57)
[2022-03-15] MEDS: ACETAMINOPHEN 325 MG TAB PO PRN (17:58)
[2022-03-15 20:20] VITALS: BP 160/66
[2022-03-15 22:00] VITALS: BP 160/66
[2022-03-15] MEDS ORDERED: LINEZOLID 600MG/300ML 300 ML IV SCH (22:00)
[2022-03-15] MEDS: ATORVASTATIN 20 MG TAB PO SCH (22:07)
[2022-03-15] MEDS: traZODone HCL 50 MG TAB PO SCH (22:07)
[2022-03-15] MEDS: DOCUSATE SOD 100 MG CAP PO SCH (22:07)
[2022-03-15] MEDS: METOPROLOL TARTRATE 25 MG TAB PO SCH (22:08)
[2022-03-16] VITALS (12 sets, daily range): BP systolic 120–185; BP diastolic 52–75
[2022-03-16] MEDS: LACTATED RINGER'S 1,000 ML IV SCH ×2 (02:45→22:45)
[2022-03-16 06:50] LABS: Basophils # (auto) 0 10 ^3/uL (0-0.2); Basophils % (auto) 0.3 % (0.0-2.0); Eosinophils # (auto) 0.1 10 ^3/uL (0-0.8); Hematocrit 26.4 % (41.0-53.0); Hemoglobin 8.8 g/dL (13.5-17.5); Lymphocytes # (auto) 1.2 10 ^3/uL (0.4-5.4); Lymphocytes % (auto) 11.3 % (10.0-50.0); Mean Corpuscular Hemoglobin 30.3 pg (28.0-32.0); Mean Corpuscular Hgb Conc. 33.3 g/dL (32.0-36.0); Mean Corpuscular Volume 90.8 fL (80.0-100.0); Monocytes # (auto) 0.9 10 ^3/uL (0-1.3); Monocytes % (auto) 8.5 % (0.0-12.0); Neutrophils # (auto) 8.3 10 ^3/uL (1.6-8.6); Neutrophils % (auto) 78.9 % (37.0-80.0); Nucleated Red Blood Cells % 0.1 %; Red Cell Distribution Width 15.1 % (11.8-14.3); White Blood Cell 10.5 10^3/uL (4.4-10.8)
[2022-03-16 07:01] LABS: BUN/Creatinine Ratio 27.2; Calcium 8.7 mg/dL (8.5-10.1)
[2022-03-16] MEDS: FERROUS SULFATE 325mg EC TAB PO SCH ×2 (08:54→18:06)
[2022-03-16] MEDS: cefTRIAXone 1GM/50ML D5W 50 ML IV SCH (10:32)
[2022-03-16] MEDS: FUROSEMIDE 20 MG TAB PO SCH (10:33)
[2022-03-16] MEDS: DOCUSATE SOD 100 MG CAP PO SCH ×2 (10:33→21:58)
[2022-03-16] MEDS: METOPROLOL TARTRATE 25 MG TAB PO SCH ×2 (10:34→21:59)
[2022-03-16] MEDS: PANTOPRAZOLE 40 MG TAB PO SCH (10:35)
[2022-03-16] MEDS: ENOXAPARIN SOD 30 MG/0.3 ML SYRINGE SC SCH (10:36)
[2022-03-16] MEDS: NIFEdipine ER 30 MG TAB PO SCH (10:36)
[2022-03-16] MEDS: ACETAMINOPHEN 325 MG TAB PO PRN (12:52)
[2022-03-16] MEDS: TAMSULOSIN HYDROCHLORIDE 0.4 MG CAP PO SCH (18:06)
[2022-03-16] MEDS: ATORVASTATIN 20 MG TAB PO SCH (21:59)
[2022-03-16] MEDS: traZODone HCL 50 MG TAB PO SCH (21:59)
[2022-03-16] MEDS: HYDROcodone-ACET 5/325MG TAB PO PRN (22:00)
[2022-03-17 05:00] VITALS: BP 137/51
[2022-03-17 06:31] LABS: Basophils # (auto) 0 10 ^3/uL (0-0.2); Eosinophils # (auto) 0.2 10 ^3/uL (0-0.8); Hemoglobin 8.1 g/dL (13.5-17.5); Mean Corpuscular Volume 90.4 fL (80.0-100.0); Monocytes # (auto) 0.9 10 ^3/uL (0-1.3)
[2022-03-17 06:35] LABS: Basophils % (auto) 0.6 % (0.0-2.0); Eosinophils % (auto) 2.2 % (0.0-7.0); Hematocrit 24.1 % (41.0-53.0); Lymphocytes # (auto) 1.1 10 ^3/uL (0.4-5.4); Lymphocytes % (auto) 12.6 % (10.0-50.0); Mean Corpuscular Hemoglobin 30.3 pg (28.0-32.0); Mean Corpuscular Hgb Conc. 33.6 g/dL (32.0-36.0); Neutrophils # (auto) 6.4 10 ^3/uL (1.6-8.6); Neutrophils % (auto) 74.6 % (37.0-80.0); Nucleated Red Blood Cells % 0.2 %; Red Blood Cells 2.66 10^6/uL (4.5-5.90); White Blood Cell 8.5 10^3/uL (4.4-10.8)
[2022-03-17 06:48] LABS: BUN/Creatinine Ratio 27.4; Calcium 8.3 mg/dL (8.5-10.1); Potassium 3.8 mmol/L (3.5-5.1)
[2022-03-17] MEDS: cefTRIAXone 1GM/50ML D5W 50 ML IV SCH (08:55)
[2022-03-17] MEDS: METOPROLOL TARTRATE 25 MG TAB PO SCH ×2 (08:56→21:32)
[2022-03-17] MEDS: FERROUS SULFATE 325mg EC TAB PO SCH ×2 (08:57→19:46)
[2022-03-17] MEDS: NIFEdipine ER 30 MG TAB PO SCH (08:57)
[2022-03-17] MEDS: HYDROcodone-ACET 5/325MG TAB PO PRN (08:58)
[2022-03-17] MEDS: FUROSEMIDE 20 MG TAB PO SCH (08:58)
[2022-03-17] MEDS: PANTOPRAZOLE 40 MG TAB PO SCH (08:58)
[2022-03-17] MEDS: DOCUSATE SOD 100 MG CAP PO SCH ×2 (08:58→21:31)
[2022-03-17] MEDS: ENOXAPARIN SOD 30 MG/0.3 ML SYRINGE SC SCH (08:59)
[2022-03-17 09:00] VITALS: BP 126/53
[2022-03-17 13:29] VITALS: BP 129/58
[2022-03-17 13:38] LABS: INR 1.02 (0.9-1.15)
[2022-03-17] MEDS: levoFLOXacin 500MG 100 ML IV SCH (14:59)
[2022-03-17] MEDS: LINEZOLID 600MG TABLET PO SCH ×2 (15:16→21:31)
[2022-03-17 16:51] VITALS: BP 160/66
[2022-03-17] MEDS ORDERED: LIDOCAINE 1% (LOCAL ANESTH.) PF 5ml SDV ID ONE (17:45)
[2022-03-17] MEDS: hydrALAZINE HCL 20 MG/ML VL IV PRN (19:45)
[2022-03-17] MEDS: TAMSULOSIN HYDROCHLORIDE 0.4 MG CAP PO SCH (19:46)
[2022-03-17] MEDS: traZODone HCL 50 MG TAB PO SCH (21:31)
[2022-03-17] MEDS: SODIUM CHLOR 0.9% PF (SALINE LOCK) 10ML VIAL/SYR IV SCH (21:32)
[2022-03-17] MEDS: ATORVASTATIN 20 MG TAB PO SCH (21:32)
[2022-03-17] MEDS: ACETAMINOPHEN 325 MG TAB PO PRN (21:32)
[2022-03-17] MEDS: LACTATED RINGER'S 1,000 ML IV SCH (21:33)
[2022-03-17 22:00] VITALS: BP 145/67
[2022-03-18 05:00] VITALS: BP 167/61
[2022-03-18 09:00] VITALS: BP 180/54
[2022-03-18] MEDS: levoFLOXacin 500MG 100 ML IV SCH (10:01)
[2022-03-18] MEDS: PANTOPRAZOLE 40 MG TAB PO SCH (10:02)
[2022-03-18] MEDS: NIFEdipine ER 30 MG TAB PO SCH (10:02)
[2022-03-18] MEDS: DOCUSATE SOD 100 MG CAP PO SCH ×2 (10:03→22:09)
[2022-03-18] MEDS: FERROUS SULFATE 325mg EC TAB PO SCH ×2 (10:03→18:29)
[2022-03-18] MEDS: FUROSEMIDE 20 MG TAB PO SCH (10:03)
[2022-03-18] MEDS: METOPROLOL TARTRATE 25 MG TAB PO SCH ×2 (10:03→22:08)
[2022-03-18] MEDS: LINEZOLID 600MG TABLET PO SCH ×2 (10:03→22:08)
[2022-03-18] MEDS: ENOXAPARIN SOD 30 MG/0.3 ML SYRINGE SC SCH (10:04)
[2022-03-18] MEDS: SODIUM CHLOR 0.9% PF (SALINE LOCK) 10ML VIAL/SYR IV SCH ×2 (10:15→22:07)
[2022-03-18 12:48] VITALS: BP 124/66
[2022-03-18] MEDS: LACTATED RINGER'S 1,000 ML IV SCH ×2 (14:45→22:19)
[2022-03-18 17:00] VITALS: BP 178/71
[2022-03-18] MEDS: TAMSULOSIN HYDROCHLORIDE 0.4 MG CAP PO SCH (18:29)
[2022-03-18] MEDS: hydrALAZINE HCL 20 MG/ML VL IV PRN (18:30)
[2022-03-18] MEDS: HYDROcodone-ACET 5/325MG TAB PO PRN (20:05)
[2022-03-18 22:00] VITALS: BP 149/58
[2022-03-18] MEDS: ATORVASTATIN 20 MG TAB PO SCH (22:08)
[2022-03-18] MEDS: traZODone HCL 50 MG TAB PO SCH (22:08)
[2022-03-19 05:00] VITALS: BP_SYST 142; BP_SYST 154; BP_DIAS 48; BP_DIAS 58
[2022-03-19 06:27] LABS: Basophils # (auto) 0 10 ^3/uL (0-0.2); Eosinophils # (auto) 0.1 10 ^3/uL (0-0.8); Hematocrit 22.2 % (41.0-53.0); Monocytes # (auto) 0.6 10 ^3/uL (0-1.3); White Blood Cell 5.6 10^3/uL (4.4-10.8)
[2022-03-19 06:28] LABS: Albumin 2.2 g/dL (3.4-5.0); BUN/Creatinine Ratio 21.9; Calcium 8.1 mg/dL (8.5-10.1); Phosphorus 2.1 mg/dL (2.5-4.90); Potassium 4.2 mmol/L (3.5-5.1)
[2022-03-19 06:36] LABS: Basophils % (auto) 0.4 % (0.0-2.0); Eosinophils % (auto) 1.8 % (0.0-7.0); Hemoglobin 7.6 g/dL (13.5-17.5); Lymphocytes # (auto) 1.1 10 ^3/uL (0.4-5.4); Lymphocytes % (auto) 20.4 % (10.0-50.0); Mean Corpuscular Hemoglobin 30.5 pg (28.0-32.0); Mean Corpuscular Hgb Conc. 34.2 g/dL (32.0-36.0); Neutrophils # (auto) 3.7 10 ^3/uL (1.6-8.6); Neutrophils % (auto) 66.4 % (37.0-80.0); Nucleated Red Blood Cells % 0.1 %; Red Blood Cells 2.49 10^6/uL (4.5-5.90)
[2022-03-19 09:00] VITALS: BP 141/52
[2022-03-19] MEDS: levoFLOXacin 500MG 100 ML IV SCH (09:56)
[2022-03-19] MEDS: FUROSEMIDE 20 MG TAB PO SCH (09:57)
[2022-03-19] MEDS: PANTOPRAZOLE 40 MG TAB PO SCH (09:58)
[2022-03-19] MEDS: DOCUSATE SOD 100 MG CAP PO SCH ×2 (09:58→22:07)
[2022-03-19] MEDS: METOPROLOL TARTRATE 25 MG TAB PO SCH ×2 (09:58→22:08)
[2022-03-19] MEDS: HYDROcodone-ACET 5/325MG TAB PO PRN ×2 (09:59→20:44)
[2022-03-19] MEDS: NIFEdipine ER 30 MG TAB PO SCH (09:59)
[2022-03-19] MEDS: LINEZOLID 600MG TABLET PO SCH ×2 (09:59→22:07)
[2022-03-19] MEDS: SODIUM CHLOR 0.9% PF (SALINE LOCK) 10ML VIAL/SYR IV SCH ×2 (09:59→22:06)
[2022-03-19] MEDS: FERROUS SULFATE 325mg EC TAB PO SCH ×2 (09:59→18:54)
[2022-03-19] MEDS: ENOXAPARIN SOD 30 MG/0.3 ML SYRINGE SC SCH (10:00)
[2022-03-19 13:00] VITALS: BP 158/71
[2022-03-19 17:00] VITALS: BP 176/65
[2022-03-19] MEDS: hydrALAZINE HCL 20 MG/ML VL IV PRN (18:53)
[2022-03-19] MEDS: TAMSULOSIN HYDROCHLORIDE 0.4 MG CAP PO SCH (18:54)
[2022-03-19 22:00] VITALS: BP 144/54
[2022-03-19] MEDS: traZODone HCL 50 MG TAB PO SCH (22:07)
[2022-03-19] MEDS: ATORVASTATIN 20 MG TAB PO SCH (22:08)
[2022-03-20] MEDS: LACTATED RINGER'S 1,000 ML IV SCH (02:52)
[2022-03-20 05:00] VITALS: BP 153/62
[2022-03-20 08:30] VITALS: BP 152/70
[2022-03-20] MEDS: DOCUSATE SOD 100 MG CAP PO SCH (09:18)
[2022-03-20] MEDS: LINEZOLID 600MG TABLET PO SCH (09:18)
[2022-03-20] MEDS: PANTOPRAZOLE 40 MG TAB PO SCH (09:18)
[2022-03-20] MEDS: FERROUS SULFATE 325mg EC TAB PO SCH ×2 (09:19→17:56)
[2022-03-20] MEDS: METOPROLOL TARTRATE 25 MG TAB PO SCH (09:19)
[2022-03-20] MEDS: NIFEdipine ER 30 MG TAB PO SCH (09:20)
[2022-03-20] MEDS: FUROSEMIDE 20 MG TAB PO SCH (09:20)
[2022-03-20] MEDS: levoFLOXacin 500MG 100 ML IV SCH (09:20)
[2022-03-20] MEDS: SODIUM CHLOR 0.9% PF (SALINE LOCK) 10ML VIAL/SYR IV SCH (09:21)
[2022-03-20] MEDS ORDERED: ENOXAPARIN SOD 40 MG/0.4 ML SYRINGE SC SCH (10:00)
[2022-03-20 12:30] VITALS: BP 151/69
[2022-03-20 17:00] VITALS: BP 164/69
[2022-03-20 17:01] LABS: Magnesium 1.8 mg/dL (1.6-2.6); Phosphorus 2.2 mg/dL (2.5-4.90)
[2022-03-20] MEDS: TAMSULOSIN HYDROCHLORIDE 0.4 MG CAP PO SCH (17:56)
[2022-03-20] MEDS: hydrALAZINE HCL 20 MG/ML VL IV PRN (18:24)
[2022-03-20 20:01] LABS: Protein, Urine 40.9 mg/dL (0.0-11.9)
[2022-03-23 16:17] LABS: Hepatitis C Antibody Negative (Negative)
== END 2022-03-20 21:26 | DRG 871 ==
LOC: EDBD 06:11 → EDUNIT# 06:11 → ER 06:14 → WEST WING 13:46 → OVERFLOW 18:41 → TELE-EAST 22:10
PROVIDERS: ADMIT Internal Medicine; ATTEND Family Medicine
PROC: 30233N1 Transfusion of Nonautologous Red Blood Cells into Peripheral Vein, Percutaneous Approach (ICD-10-PCS; principal; 2022-03-16)
PROC: 02HV33Z Insertion of Infusion Device into Superior Vena Cava, Percutaneous Approach (ICD-10-PCS; 2022-03-17)
PROC: B548ZZA Ultrasonography of Superior Vena Cava, Guidance (ICD-10-PCS; 2022-03-17)
DX: A41.81 Sepsis due to Enterococcus (principal); G92.8 Other toxic encephalopathy; N17.0 Acute kidney failure with tubular necrosis; I13.0 Hypertensive heart and chronic kidney disease with heart failure and stage 1 through stage 4 chronic kidney disease, or unspecified chronic kidney disease; N18.4 Chronic kidney disease, stage 4 (severe); N10 Acute pyelonephritis; J98.11 Atelectasis; E44.0 Moderate protein-calorie malnutrition; R65.20 Severe sepsis without septic shock; D63.8 Anemia in other chronic diseases classified elsewhere; E11.22 Type 2 diabetes mellitus with diabetic chronic kidney disease; B95.2 Enterococcus as the cause of diseases classified elsewhere; Z20.822 Contact with and (suspected) exposure to COVID-19; H40.9 Unspecified glaucoma; R79.89 Other specified abnormal findings of blood chemistry; L97.529 Non-pressure chronic ulcer of other part of left foot with unspecified severity; L97.519 Non-pressure chronic ulcer of other part of right foot with unspecified severity; K59.00 Constipation, unspecified; B96.1 Klebsiella pneumoniae [K. pneumoniae] as the cause of diseases classified elsewhere; E86.0 Dehydration; E11.40 Type 2 diabetes mellitus with diabetic neuropathy, unspecified; E78.00 Pure hypercholesterolemia, unspecified; K62.89 Other specified diseases of anus and rectum; I50.9 Heart failure, unspecified; E78.5 Hyperlipidemia, unspecified; N40.0 Benign prostatic hyperplasia without lower urinary tract symptoms; Z74.01 Bed confinement status; Z79.899 Other long term (current) drug therapy; Z83.3 Family history of diabetes mellitus; Z86.73 Personal history of transient ischemic attack (TIA), and cerebral infarction without residual deficits; Z90.49 Acquired absence of other specified parts of digestive tract; Z68.24 Body mass index [BMI] 24.0-24.9, adult
CPT/HCPCS: 36415; 36569; 70450; 71045; 74176; 76775; 80048; 80053; 80069; 80202; 80320; 81001; 82270; 82306; 82570; 83605; 83735; 83970; 84100; 84156; 84300; 84443; 84484; 85025; 85610; 85730; 86803; 86850; 86900; 86901; 86920; 87040; 87077; 87086; 87088; 87186; 87340; 93005; 93925; 96361; 96365; G0378; J0696; J1956

== ENCOUNTER 2022-04-19 15:44 | Inpatient (IN) | payer OTHER ==
[~2022-04-19] VITALS: Ht 185.4 cm; Wt 88.4 kg
[2022-04-19] MEDS ORDERED: SODIUM CHLORIDE 0.9% 1,000 ML IV ONE ×2 (16:45→18:45)
[2022-04-19] MEDS ORDERED: SODIUM CHLORIDE 0.9% 500 ML IVB ONE (16:45)
[2022-04-19 17:34] LABS: Basophils # (auto) 0 10 ^3/uL (0-0.2); Basophils % (auto) 0.3 % (0.0-2.0); Eosinophils # (auto) 0.1 10 ^3/uL (0-0.8); Monocytes # (auto) 0.3 10 ^3/uL (0-1.3); Red Cell Distribution Width 16.2 % (11.8-14.3)
[2022-04-19 17:36] LABS: Eosinophils % (auto) 1.6 % (0.0-7.0); Hematocrit 17.7 % (41.0-53.0); Lymphocytes % (auto) 23.3 % (10.0-50.0); Mean Corpuscular Hemoglobin 29.5 pg (28.0-32.0); Mean Corpuscular Hgb Conc. 32.9 g/dL (32.0-36.0); Mean Corpuscular Volume 89.6 fL (80.0-100.0); Monocytes % (auto) 7.3 % (0.0-12.0); Neutrophils % (auto) 67.5 % (37.0-80.0); Red Blood Cells 1.97 10^6/uL (4.5-5.90); White Blood Cell 4.4 10^3/uL (4.4-10.8)
[2022-04-19 17:43] LABS: Hemoglobin 5.8 g/dL (13.5-17.5)
[2022-04-19 17:54] LABS: Albumin 2.8 g/dL (3.4-5.0); BUN/Creatinine Ratio 17.7; Calcium 9.3 mg/dL (8.5-10.1); Magnesium 2.5 mg/dL (1.6-2.6); Potassium 4.3 mmol/L (3.5-5.1)
[2022-04-19 17:57] LABS: Bilirubin, Total 0.4 mg/dL (0.2-1.0); Total Protein 7.1 g/dL (6.4-8.2)
[2022-04-19] MEDS ORDERED: ONDANSETRON HCL 4 MG/2 ML VIAL IV PRN (18:45)
[2022-04-19] MEDS ORDERED: DEXTROSE (50%) 50ML SYRG IV PRN (18:45)
[2022-04-19] MEDS ORDERED: DOCUSATE SOD 100 MG CAP PO PRN (18:45)
[2022-04-19] MEDS ORDERED: HYDROcodone-ACET 5/325MG TAB PO PRN (18:45)
[2022-04-20] VITALS (7 sets, daily range): BP systolic 115–163; BP diastolic 54–84
[2022-04-20] MEDS: CARVEDILOL 12.5 MG TAB PO SCH ×3 (00:30→22:00)
[2022-04-20] MEDS: METOPROLOL TARTRATE 25 MG TAB PO SCH ×2 (00:31→10:44)
[2022-04-20] MEDS: ACCU-CHEK COMFORT CURVE STRIP VI SCH ×4 (00:31→18:02)
[2022-04-20] MEDS: DORZOLAMIDE HCL 2% OPTH(EYE) SOL 10ML EACHEYE SCH ×3 (00:32→22:00)
[2022-04-20] MEDS: InsuLIN REG 1unit/0.01ml Soln (100units/ml) SC SCH ×4 (00:50→18:00)
[2022-04-20] MEDS: SEA OMEGA PO SCH ×4 (07:54→22:00)
[2022-04-20] MEDS: FERROUS SULFATE 325mg EC TAB PO SCH (10:40)
[2022-04-20] MEDS: PANTOPRAZOLE 40 MG/10 ML VIAL INJ IV SCH (10:40)
[2022-04-20] MEDS: ZINC SULFATE 220mg CAP or TAB PO SCH (10:41)
[2022-04-20] MEDS: LORATADINE 10 MG TAB PO SCH (10:41)
[2022-04-20] MEDS: ATORVASTATIN 20 MG TAB PO SCH (10:43)
[2022-04-20] MEDS: TAMSULOSIN HYDROCHLORIDE 0.4 MG CAP PO SCH (10:43)
[2022-04-20] MEDS: FUROSEMIDE 20 MG TAB PO SCH (10:43)
[2022-04-20] MEDS: ASPirin-EC 81 mg tab PO SCH (10:43)
[2022-04-20] MEDS: FINASTERIDE 5 MG TAB PO SCH (10:44)
[2022-04-20] MEDS: POLYETHYLENE GLYCOL 17 GM PWDR PO SCH (10:44)
[2022-04-20] MEDS: ENOXAPARIN SOD 30 MG/0.3 ML SYRINGE SC SCH (10:44)
[2022-04-20] MEDS: NIFEdipine ER 30 MG TAB PO SCH (10:44)
[2022-04-20 11:26] LABS: Basophils # (auto) 0 10 ^3/uL (0-0.2); Basophils % (auto) 0.4 % (0.0-2.0); Eosinophils # (auto) 0.1 10 ^3/uL (0-0.8); Eosinophils % (auto) 1.6 % (0.0-7.0); Hematocrit 26.4 % (41.0-53.0); Hemoglobin 8.9 g/dL (13.5-17.5); Lymphocytes # (auto) 1.1 10 ^3/uL (0.4-5.4); Mean Corpuscular Hemoglobin 29.5 pg (28.0-32.0); Mean Corpuscular Hgb Conc. 33.7 g/dL (32.0-36.0); Mean Corpuscular Volume 87.4 fL (80.0-100.0); Monocytes # (auto) 0.5 10 ^3/uL (0-1.3); Monocytes % (auto) 8.3 % (0.0-12.0); Neutrophils # (auto) 3.9 10 ^3/uL (1.6-8.6); Neutrophils % (auto) 70.7 % (37.0-80.0); Nucleated Red Blood Cells % 0.1 %; Red Blood Cells 3.02 10^6/uL (4.5-5.90); Red Cell Distribution Width 15.6 % (11.8-14.3); White Blood Cell 5.6 10^3/uL (4.4-10.8)
[2022-04-20 11:44] LABS: Albumin 2.9 g/dL (3.4-5.0); Calcium 9.1 mg/dL (8.5-10.1); Potassium 4.3 mmol/L (3.5-5.1)
[2022-04-20 13:09] LABS: Bilirubin, Total 0.5 mg/dL (0.2-1.0)
[2022-04-20] MEDS ORDERED: traZODone HCL 50 MG TAB PO SCH (18:00)
[2022-04-20] MEDS ORDERED: SODIUM CHLORIDE 0.9% 1,000 ML IV SCH (22:30)
[2022-04-21] MEDS: ACCU-CHEK COMFORT CURVE STRIP VI SCH ×4 (01:05→16:53)
[2022-04-21 05:00] VITALS: BP 124/49
[2022-04-21] MEDS: SEA OMEGA PO SCH ×3 (05:53→22:00)
[2022-04-21] MEDS: InsuLIN REG 1unit/0.01ml Soln (100units/ml) SC SCH ×4 (05:53→16:53)
[2022-04-21 09:00] VITALS: BP 136/62
[2022-04-21 09:02] LABS: Basophils # (auto) 0 10 ^3/uL (0-0.2); Eosinophils # (auto) 0.1 10 ^3/uL (0-0.8); Hemoglobin 7.8 g/dL (13.5-17.5); Mean Corpuscular Hemoglobin 29.8 pg (28.0-32.0); Monocytes # (auto) 0.5 10 ^3/uL (0-1.3); Neutrophils # (auto) 3.4 10 ^3/uL (1.6-8.6); Nucleated Red Blood Cells % 0.1 %; White Blood Cell 5.6 10^3/uL (4.4-10.8)
[2022-04-21 09:04] LABS: Basophils % (auto) 0.3 % (0.0-2.0); Eosinophils % (auto) 2.3 % (0.0-7.0); Hematocrit 23.1 % (41.0-53.0); Lymphocytes # (auto) 1.5 10 ^3/uL (0.4-5.4); Lymphocytes % (auto) 27.4 % (10.0-50.0); Mean Corpuscular Hgb Conc. 33.7 g/dL (32.0-36.0); Mean Corpuscular Volume 88.3 fL (80.0-100.0); Monocytes % (auto) 9.1 % (0.0-12.0); Neutrophils % (auto) 60.9 % (37.0-80.0); Red Blood Cells 2.62 10^6/uL (4.5-5.90)
[2022-04-21 09:23] LABS: Albumin 2.5 g/dL (3.4-5.0); Calcium 8.7 mg/dL (8.5-10.1); Potassium 4.2 mmol/L (3.5-5.1)
[2022-04-21 09:27] LABS: BUN/Creatinine Ratio 19.5; Bilirubin, Total 0.6 mg/dL (0.2-1.0)
[2022-04-21] MEDS: FERROUS SULFATE 325mg EC TAB PO SCH (09:55)
[2022-04-21] MEDS: CARVEDILOL 12.5 MG TAB PO SCH ×2 (09:55→22:07)
[2022-04-21] MEDS: ZINC SULFATE 220mg CAP or TAB PO SCH (09:55)
[2022-04-21] MEDS: LORATADINE 10 MG TAB PO SCH (09:55)
[2022-04-21] MEDS: ENOXAPARIN SOD 30 MG/0.3 ML SYRINGE SC SCH (09:56)
[2022-04-21] MEDS: NIFEdipine ER 30 MG TAB PO SCH (09:56)
[2022-04-21] MEDS: POLYETHYLENE GLYCOL 17 GM PWDR PO SCH (09:56)
[2022-04-21] MEDS: TAMSULOSIN HYDROCHLORIDE 0.4 MG CAP PO SCH (09:56)
[2022-04-21] MEDS: FUROSEMIDE 20 MG TAB PO SCH (09:56)
[2022-04-21] MEDS: FINASTERIDE 5 MG TAB PO SCH (09:56)
[2022-04-21] MEDS: ASPirin-EC 81 mg tab PO SCH (09:56)
[2022-04-21] MEDS: ATORVASTATIN 20 MG TAB PO SCH (09:56)
[2022-04-21] MEDS: PANTOPRAZOLE 40 MG/10 ML VIAL INJ IV SCH (09:57)
[2022-04-21] MEDS: DORZOLAMIDE HCL 2% OPTH(EYE) SOL 10ML EACHEYE SCH ×3 (10:00→23:03)
[2022-04-21 13:00] VITALS: BP 132/65
[2022-04-21 16:35] VITALS: BP 134/64
[2022-04-21] MEDS: D5W/SOD CHL 0.45% 1,000 ML IV SCH (16:40)
[2022-04-21 22:00] VITALS: BP 146/63
[2022-04-22] MEDS: ACCU-CHEK COMFORT CURVE STRIP VI SCH ×5 (00:17→23:58)
[2022-04-22] MEDS: InsuLIN REG 1unit/0.01ml Soln (100units/ml) SC SCH ×5 (00:22→23:58)
[2022-04-22] MEDS: D5W/SOD CHL 0.45% 1,000 ML IV SCH ×2 (01:05→13:56)
[2022-04-22 05:00] VITALS: BP 131/62
[2022-04-22] MEDS: SEA OMEGA PO SCH ×3 (05:54→22:00)
[2022-04-22 06:07] LABS: Basophils # (auto) 0 10 ^3/uL (0-0.2); Basophils % (auto) 0.3 % (0.0-2.0); Eosinophils # (auto) 0.1 10 ^3/uL (0-0.8); Eosinophils % (auto) 2.5 % (0.0-7.0); Hematocrit 21.7 % (41.0-53.0); Hemoglobin 7.1 g/dL (13.5-17.5); Lymphocytes # (auto) 1.4 10 ^3/uL (0.4-5.4); Lymphocytes % (auto) 29.7 % (10.0-50.0); Mean Corpuscular Hemoglobin 29.4 pg (28.0-32.0); Mean Corpuscular Volume 89.1 fL (80.0-100.0); Monocytes # (auto) 0.4 10 ^3/uL (0-1.3); Monocytes % (auto) 8.5 % (0.0-12.0); Neutrophils # (auto) 2.7 10 ^3/uL (1.6-8.6); Nucleated Red Blood Cells % 0.1 %; Red Blood Cells 2.43 10^6/uL (4.5-5.90); Red Cell Distribution Width 15.5 % (11.8-14.3); White Blood Cell 4.6 10^3/uL (4.4-10.8)
[2022-04-22 06:15] LABS: Potassium 4.2 mmol/L (3.5-5.1)
[2022-04-22 06:19] LABS: BUN/Creatinine Ratio 17.9; Calcium 8.7 mg/dL (8.5-10.1)
[2022-04-22] MEDS: ATORVASTATIN 20 MG TAB PO SCH (08:43)
[2022-04-22] MEDS: ASPirin-EC 81 mg tab PO SCH (08:43)
[2022-04-22] MEDS: DORZOLAMIDE HCL 2% OPTH(EYE) SOL 10ML EACHEYE SCH ×2 (08:43→22:59)
[2022-04-22] MEDS: LORATADINE 10 MG TAB PO SCH (08:45)
[2022-04-22] MEDS: FERROUS SULFATE 325mg EC TAB PO SCH (08:45)
[2022-04-22] MEDS: FINASTERIDE 5 MG TAB PO SCH (08:45)
[2022-04-22] MEDS: FUROSEMIDE 20 MG TAB PO SCH (08:45)
[2022-04-22] MEDS: CARVEDILOL 12.5 MG TAB PO SCH ×2 (08:47→23:01)
[2022-04-22] MEDS: ZINC SULFATE 220mg CAP or TAB PO SCH (08:48)
[2022-04-22] MEDS: ENOXAPARIN SOD 30 MG/0.3 ML SYRINGE SC SCH (08:48)
[2022-04-22] MEDS: TAMSULOSIN HYDROCHLORIDE 0.4 MG CAP PO SCH (08:48)
[2022-04-22] MEDS: NIFEdipine ER 30 MG TAB PO SCH (08:48)
[2022-04-22] MEDS: PANTOPRAZOLE 40 MG/10 ML VIAL INJ IV SCH (08:48)
[2022-04-22] MEDS: POLYETHYLENE GLYCOL 17 GM PWDR PO SCH (08:49)
[2022-04-22 09:00] VITALS: BP 145/61
[2022-04-22] MEDS ORDERED: levoFLOXacin 500MG 100 ML IV ONE (11:15)
[2022-04-22 13:00] VITALS: BP 186/69
[2022-04-22] MEDS: hydrALAZINE HCL 20 MG/ML VL IV PRN (13:12)
[2022-04-22 17:00] VITALS: BP 137/62
[2022-04-22 22:00] VITALS: BP 110/62
[2022-04-23 05:00] VITALS: BP 117/50
[2022-04-23] MEDS: D5W/SOD CHL 0.45% 1,000 ML IV SCH ×2 (05:54→17:05)
[2022-04-23] MEDS: SEA OMEGA PO SCH ×3 (05:54→21:19)
[2022-04-23] MEDS: InsuLIN REG 1unit/0.01ml Soln (100units/ml) SC SCH ×3 (05:55→18:00)
[2022-04-23] MEDS: ACCU-CHEK COMFORT CURVE STRIP VI SCH ×3 (05:55→18:00)
[2022-04-23] MEDS: PANTOPRAZOLE 40 MG/10 ML VIAL INJ IV SCH (08:46)
[2022-04-23] MEDS: ASPirin-EC 81 mg tab PO SCH (08:46)
[2022-04-23] MEDS: levoFLOXacin 250MG 50 ML IV SCH (08:46)
[2022-04-23] MEDS: FINASTERIDE 5 MG TAB PO SCH (08:47)
[2022-04-23] MEDS: TAMSULOSIN HYDROCHLORIDE 0.4 MG CAP PO SCH (08:47)
[2022-04-23] MEDS: ATORVASTATIN 20 MG TAB PO SCH (08:47)
[2022-04-23] MEDS: ZINC SULFATE 220mg CAP or TAB PO SCH (08:47)
[2022-04-23] MEDS: FERROUS SULFATE 325mg EC TAB PO SCH (08:47)
[2022-04-23] MEDS: FUROSEMIDE 20 MG TAB PO SCH (08:48)
[2022-04-23] MEDS: NIFEdipine ER 30 MG TAB PO SCH (08:48)
[2022-04-23] MEDS: ENOXAPARIN SOD 30 MG/0.3 ML SYRINGE SC SCH (08:49)
[2022-04-23] MEDS: CARVEDILOL 12.5 MG TAB PO SCH ×2 (08:49→21:19)
[2022-04-23] MEDS: POLYETHYLENE GLYCOL 17 GM PWDR PO SCH (08:50)
[2022-04-23 09:00] VITALS: BP 127/55
[2022-04-23] MEDS: DORZOLAMIDE HCL 2% OPTH(EYE) SOL 10ML EACHEYE SCH ×2 (09:05→21:20)
[2022-04-23] MEDS: LORATADINE 10 MG TAB PO SCH (09:06)
[2022-04-23] MEDS ORDERED: levoFLOXacin 500MG 100 ML IV SCH (10:00)
[2022-04-23 17:00] VITALS: BP 137/57
[2022-04-23] MEDS: SODIUM CHLORIDE 0.9% 1,000 ML IV SCH (18:33)
[2022-04-23 22:00] VITALS: BP 127/62
[2022-04-24] MEDS: SODIUM CHLORIDE 0.9% 1,000 ML IV SCH ×2 (02:00→10:55)
[2022-04-24 05:00] VITALS: BP 109/55
[2022-04-24] MEDS: InsuLIN REG 1unit/0.01ml Soln (100units/ml) SC SCH ×5 (06:00→23:27)
[2022-04-24] MEDS: SEA OMEGA PO SCH ×3 (06:00→21:37)
[2022-04-24] MEDS: ACCU-CHEK COMFORT CURVE STRIP VI SCH ×5 (06:26→23:28)
[2022-04-24 06:44] LABS: Basophils # (auto) 0 10 ^3/uL (0-0.2); Basophils % (auto) 0.5 % (0.0-2.0); Eosinophils # (auto) 0.1 10 ^3/uL (0-0.8); Eosinophils % (auto) 3.2 % (0.0-7.0); Hematocrit 21.8 % (41.0-53.0); Hemoglobin 7.2 g/dL (13.5-17.5); Lymphocytes # (auto) 1.3 10 ^3/uL (0.4-5.4); Lymphocytes % (auto) 33.6 % (10.0-50.0); Mean Corpuscular Hemoglobin 29.5 pg (28.0-32.0); Mean Corpuscular Volume 89.4 fL (80.0-100.0); Monocytes # (auto) 0.3 10 ^3/uL (0-1.3); Monocytes % (auto) 7.6 % (0.0-12.0); Neutrophils # (auto) 2.1 10 ^3/uL (1.6-8.6); Neutrophils % (auto) 55.1 % (37.0-80.0); Red Blood Cells 2.44 10^6/uL (4.5-5.90); Red Cell Distribution Width 15.6 % (11.8-14.3); White Blood Cell 3.8 10^3/uL (4.4-10.8)
[2022-04-24 06:56] LABS: Calcium 8.4 mg/dL (8.5-10.1); Potassium 4.5 mmol/L (3.5-5.1)
[2022-04-24 08:25] VITALS: BP 105/48
[2022-04-24] MEDS: NIFEdipine ER 30 MG TAB PO SCH (10:00)
[2022-04-24] MEDS: POLYETHYLENE GLYCOL 17 GM PWDR PO SCH (10:00)
[2022-04-24] MEDS: CARVEDILOL 12.5 MG TAB PO SCH ×2 (10:00→21:51)
[2022-04-24] MEDS: levoFLOXacin 250MG 50 ML IV SCH (10:51)
[2022-04-24] MEDS: ATORVASTATIN 20 MG TAB PO SCH (10:51)
[2022-04-24] MEDS: PANTOPRAZOLE 40 MG/10 ML VIAL INJ IV SCH (10:51)
[2022-04-24] MEDS: ZINC SULFATE 220mg CAP or TAB PO SCH (10:52)
[2022-04-24] MEDS: FINASTERIDE 5 MG TAB PO SCH (10:52)
[2022-04-24] MEDS: FERROUS SULFATE 325mg EC TAB PO SCH (10:52)
[2022-04-24] MEDS: ENOXAPARIN SOD 30 MG/0.3 ML SYRINGE SC SCH (10:52)
[2022-04-24] MEDS: ASPirin-EC 81 mg tab PO SCH (10:52)
[2022-04-24] MEDS: LORATADINE 10 MG TAB PO SCH (10:53)
[2022-04-24] MEDS: DORZOLAMIDE HCL 2% OPTH(EYE) SOL 10ML EACHEYE SCH ×2 (10:53→22:05)
[2022-04-24] MEDS: TAMSULOSIN HYDROCHLORIDE 0.4 MG CAP PO SCH (10:53)
[2022-04-24] MEDS: FUROSEMIDE 20 MG TAB PO SCH (10:54)
[2022-04-24 12:32] VITALS: BP 151/69
[2022-04-24 22:00] VITALS: BP 135/60
[2022-04-25] VITALS (11 sets, daily range): BP systolic 105–160; BP diastolic 56–73
[2022-04-25] MEDS: SEA OMEGA PO SCH ×2 (05:11→14:00)
[2022-04-25] MEDS: ACCU-CHEK COMFORT CURVE STRIP VI SCH ×3 (05:12→17:22)
[2022-04-25] MEDS: InsuLIN REG 1unit/0.01ml Soln (100units/ml) SC SCH ×3 (05:17→17:21)
[2022-04-25 07:58] LABS: BUN/Creatinine Ratio 13.9; Basophils # (auto) 0 10 ^3/uL (0-0.2); Basophils % (auto) 0.3 % (0.0-2.0); Calcium 7.6 mg/dL (8.5-10.1); Eosinophils # (auto) 0.1 10 ^3/uL (0-0.8); Eosinophils % (auto) 3.8 % (0.0-7.0); Hematocrit 21.2 % (41.0-53.0); Lymphocytes # (auto) 1.2 10 ^3/uL (0.4-5.4); Lymphocytes % (auto) 35.6 % (10.0-50.0); Mean Corpuscular Hemoglobin 29.4 pg (28.0-32.0); Mean Corpuscular Volume 89.2 fL (80.0-100.0); Monocytes # (auto) 0.3 10 ^3/uL (0-1.3); Monocytes % (auto) 9.3 % (0.0-12.0); Neutrophils # (auto) 1.8 10 ^3/uL (1.6-8.6); Nucleated Red Blood Cells % 0.1 %; Potassium 4.1 mmol/L (3.5-5.1); Red Blood Cells 2.38 10^6/uL (4.5-5.90); Red Cell Distribution Width 15.5 % (11.8-14.3); White Blood Cell 3.5 10^3/uL (4.4-10.8)
[2022-04-25] MEDS: PANTOPRAZOLE 40 MG/10 ML VIAL INJ IV SCH (09:39)
[2022-04-25] MEDS: DORZOLAMIDE HCL 2% OPTH(EYE) SOL 10ML EACHEYE SCH (09:39)
[2022-04-25] MEDS: TAMSULOSIN HYDROCHLORIDE 0.4 MG CAP PO SCH (09:40)
[2022-04-25] MEDS: FINASTERIDE 5 MG TAB PO SCH (09:40)
[2022-04-25] MEDS: FERROUS SULFATE 325mg EC TAB PO SCH (09:40)
[2022-04-25] MEDS: ASPirin-EC 81 mg tab PO SCH (09:40)
[2022-04-25] MEDS: LORATADINE 10 MG TAB PO SCH (09:40)
[2022-04-25] MEDS: ATORVASTATIN 20 MG TAB PO SCH (09:40)
[2022-04-25] MEDS: ZINC SULFATE 220mg CAP or TAB PO SCH (09:40)
[2022-04-25] MEDS: CARVEDILOL 12.5 MG TAB PO SCH (09:41)
[2022-04-25] MEDS: FUROSEMIDE 20 MG TAB PO SCH (09:41)
[2022-04-25] MEDS: levoFLOXacin 250MG 50 ML IV SCH (09:42)
[2022-04-25] MEDS: ENOXAPARIN SOD 30 MG/0.3 ML SYRINGE SC SCH (09:42)
[2022-04-25] MEDS: POLYETHYLENE GLYCOL 17 GM PWDR PO SCH (09:42)
[2022-04-25] MEDS: NIFEdipine ER 30 MG TAB PO SCH (09:44)
[2022-04-25] MEDS: hydrALAZINE HCL 20 MG/ML VL IV PRN (16:17)
== END 2022-04-25 19:30 | disposition home health service (06) | DRG 70 ==
LOC: EDUNIT# 15:44 → EDBD 15:44 → ER 15:44 → TELE 18:51 → TELE-WESTW 04-20 13:35
PROVIDERS: ADMIT Nurse Practitioner Family; ATTEND Nurse Practitioner Acute Care
PROC: 30233N1 Transfusion of Nonautologous Red Blood Cells into Peripheral Vein, Percutaneous Approach (ICD-10-PCS; principal; 2022-04-20)
DX: G93.41 Metabolic encephalopathy (principal); N17.0 Acute kidney failure with tubular necrosis; E46 Unspecified protein-calorie malnutrition; N39.0 Urinary tract infection, site not specified; I13.0 Hypertensive heart and chronic kidney disease with heart failure and stage 1 through stage 4 chronic kidney disease, or unspecified chronic kidney disease; E11.21 Type 2 diabetes mellitus with diabetic nephropathy; L89.152 Pressure ulcer of sacral region, stage 2; E11.621 Type 2 diabetes mellitus with foot ulcer; Z20.822 Contact with and (suspected) exposure to COVID-19; E11.22 Type 2 diabetes mellitus with diabetic chronic kidney disease; N18.32 Chronic kidney disease, stage 3b; B96.1 Klebsiella pneumoniae [K. pneumoniae] as the cause of diseases classified elsewhere; D63.1 Anemia in chronic kidney disease; E78.5 Hyperlipidemia, unspecified; I25.10 Atherosclerotic heart disease of native coronary artery without angina pectoris; Z90.49 Acquired absence of other specified parts of digestive tract; Z68.23 Body mass index [BMI] 23.0-23.9, adult; N40.1 Benign prostatic hyperplasia with lower urinary tract symptoms
CPT/HCPCS: 36415; 70450; 71045; 73630; 74176; 80048; 80053; 82140; 82962; 83615; 83735; 84484; 85025; 86850; 86900; 86901; 86920; 87040; 87086; 87426; 92610; 93005; 93306; 96360; C9113; G0378; J1815; J1956